=== PATIENT | female | born 1935 | race African-American/Black ===

== ENCOUNTER 2016-07-23 18:54 | Emergency (ER) | payer MEDICARE ==
--- NOTE | ~2016-07-23 | EKG ---
PATIENT: OLGA LIDIA MOYA UNIT #: [id number] Ventricular Rate: 98 BPM Atrial Rate: 98 BPM P-R Interval: 144 ms QRS Duration: 92 ms Q-T Interval: 384 ms QTC Calculation(Bezet): 490 ms P [place]: 84 degrees Calculated R [place]: 31 degrees Calculated T [place]: 48 degrees Diagnosis Line: Sinus rhythm with occasional Premature ventricular Diagnosis Line: complexes Diagnosis Line: Biatrial enlargement Diagnosis Line: Incomplete right bundle branch block Diagnosis Line: Anterior infarct , age undetermined Diagnosis Line: Abnormal ECG Diagnosis Line: When compared with ECG of 11-JAN-2016 11:11, Diagnosis Line: Significant changes have occurred Diagnosis Line: Confirmed by CALVIN PACHECO MD ([id number]) on 08/02/2016 Diagnosis Line: 11:50:50 AM INTERPRETING MD: TARA CONNOR
--- NOTE | ~2016-07-23 | CR72 ---
[facility] A Service [facility] RADIOLOGY TEXT RESULTS PATIENT: OLGA LIDIA MOYA V LOCATION: SED : 34 UNIT #: [id number] AGE: [address]: Cyndi Stevens SEX: F ORDER DR: [id number] [address] [address] [id number] MR#: [id number] Acc #: [id number] NAME: OLGA LIDIA MOYA V. : 1935 SEX: F STUDY DATE/TIME: 07/23/2016 18:59 UNIT: SED ROOM: STUDY DESCRIPTION: CR Chest Single View Portable Attending Physician: Cyndi Stevens Pa-C Ordering Physician: Cyndi Stevens Pa-C Primary Care Physician: Damir Ramos M.D. MEDICAL IMAGING REPORT This report is preliminary unless electronic signature is present. EXAM Portable chest x-ray 07/23/2016 HISTORY Cough, short of breath, aches, cough 1 week ago. TECHNIQUE AP radiograph of the chest is presented. COMPARISON STUDIES 01/10/2016. FINDINGS No acute bony abnormality. Heart upper limits of normal in size. Lungs well-inflated. Pulmonary vasculature mildly prominent as on prior examination. This may be a reflection of mild chronic or recurrent vascular congestion. No cynthia parenchymal edema. No pleural effusion pneumothorax or suspicious nodule. Healed granulomas disease, unchanged. No dense airspace disease. Dictated by... Glen Valentin M.D. THIS IS AN ELECTRONICALLY VERIFIED REPORT Glen Valentin M.D. at 07/24/2016 3:05 PM DONY/betsy TD: 07/23/2016 23:32 JOB #: [id number] [facility] A Service [facility] RADIOLOGY TEXT RESULTS PATIENT: OLGA LIDIA MOYA V LOCATION: SED : 34 UNIT #: [id number] AGE: [address]: Cyndi Stevens SEX: F ORDER DR: MEDICAL IMAGING REPORT Page 1 of 1
[~2016-07-23 18:54] MED LIST: ACETAMINOPHEN PO; ADVAIR HFA 115-12 GM IH; ALBUTEROL17 GM INH; ALLEGRA ALLERG180 MG PO; APAP325 MG PO; ASPIRIN; ASPIRIN PO; ASPIRIN81 M1 PO; ASPIRIN81 M2 PO; ATIVAN; ATIVAN PO; AVAPRO; AVAPRO PO; AVAPRO300 M1 PO; BACLOFEN10 MG PO; BACTRIM DS TABL1 TA1 PO; BACTRIM DS TABL1 TAB PO; BAYER ASPIRIN325 M1 PO; BENTYL10 M1 PO; BENTYL10 MG; BENTYL10 MG PO; BENZONATATE PO; BENZTROPINE MESY1 MG PO; CALTRATE PLUS T1 TAB PO; CARAFATE PO; CIPRO PO; CLONAZEPAM0.5 MG PO; COATED ASPIRIN325 M1 PO; COGENTIN1 MG; COL-RITE250 MG PO; COLACE; COLACE PO; COMBIVENT U/D3 M1 INH; DICYCLOMINE HCL10 MG; DICYCLOMINE HCL10 MG PO; DICYCLOMINE HCL20 MG; DICYCLOMINE HCL20 MG PO; DOCUSATE SODIU100 MG PO; EPIPEN0.3 MG/0.1 IM; FIBER THERAPY625 MG PO; FLONASE16 GM; FLOVENT DI50 MCG/DIS IH; GAS-X166 MG PO; HYDRALAZINE HCL25 MG PO; ISMO20 M2; ISORDIL PO; ISORDIL10 MG PO; ISOSORBIDE DINI10 MG PO; ISOSORBIDE MONO20 M1 PO; KEPPRA750 MG PO; KLONOPIN0.5 MG; LIPITOR20 MG PO; LOPRESSOR; MACROBID100 M1 PO; MAG-OXIDE400 MG PO; MAGNESIUM PO; METAMUCIL1 PKT PO; MIDRIN CAPSULE1 CAP; MIDRIN CAPSULE1 CAP PO; MIRALAX17 G1 PO; MIRALAX17 GM PO; MOBIC PO; MONTELUKAST SOD10 MG PO; MUCINEX DM1 TAB.SR .; MUCINEX DM1 TAB.SR . PO; NEURONTIN PO; NITROQUICK0.4 MG SL; NORCO 5/325 TAB1 TAB PO; NORCO1 TAB 10/3 PO; NORVASC PO; NORVASC10 MG; NORVASC10 MG PO; OMEPRAZOLE40 M1 PO; ONDANSETRON HCL4 MG PO; PERCOCET5/325 PO; PHENERGAN PO; PHENERGAN25 MG PO; PLAVIX; PLAVIX PO; POSTURE600 MG PO; PREDNISONE PO; PREMARIN; PREMPRO 0.3 MG/1 TAB PO; PRILOSEC; PRILOSEC PO; PROAIR HFA8.5 GM IH; PROAIR HFA8.5 GM INH; PROTONIX PO; PROVERA; PYRIDIUM PO; REGLAN10 MG PO; SALINE NASAL SPRAY; SENNA; SENNA PO; SIMVASTATIN40 MG PO; SINGULAIR PO; SPIRIVA18 MCG INH; SYNTHROID; SYNTHROID PO; SYNTHROID0.05 MG; SYNTHROID25 MCG PO; TETRACYCLINE PO; TOPROL XL; TRAMADOL HCL50 M2 PO; TYLOX 5-500 MG1 EACH PO; VIBRAMYCIN100 M1 PO; VICODIN 5/1 TAB 5/50 PO; VICODIN 5/500 T1 TAB PO; VIT B-12 PO; VITAMIN D 4001 UDTAB PO; XIFAXAN; ZOCOR; ZOFRAN PO; [UNRECOGNIZED DRUG - OTHER] PO; [UNRECOGNIZED DRUG - REMARK]
[2016-07-23 19:33] LABS: BASOPHIL# 0.1 X10e3 (0-0.3); BASOPHIL% 0.6 % (0-2.5); EOSINOPHIL% 0.2 % (0.0-7.0); HEMATOCRIT 40.2 % (35.0-45.0); LYMPHOCYTE% 8.4 % (17.0-45.0); MEAN CELL VOLUME 90.2 FL (83-96); MEAN CORPUSCULAR HEMOGLOBIN 29.1 PG (28-34); MEAN CORPUSCULAR HGB CONC 32.3 g/dL (30-36); MEAN PLATELET VOLUME 8.7 FL (6.5-11.5); MONOCYTE# 1.1 X10e3 (0-1.0); MONOCYTE% 9.5 % (3.0-12.0); NEUTROPHIL# 9.6 X10e3 (1.5-7.1); NEUTROPHIL% 81.3 % (40-75); PLATELET COUNT 193 X10e3 (140-420); RED BLOOD COUNT 4.45 X10e (3.90-5.30); RED CELL DISTRIBUTION WIDTH 15.8 % (11.0-15.5); WHITE BLOOD COUNT 11.8 X10e3 (4.0-10.5)
[2016-07-23 19:37] LABS: DIFF IND NO
[2016-07-23 19:47] LABS: ALBUMIN SERUM 4.3 g/dL (3.5-5.0); BILIRUBIN,TOTAL 0.8 mg/dL (0.2-2.0); BUN/CREATININE RATIO 13.33; CALCIUM SERUM 9.2 mg/dL (8.4-10.2); CREATININE SERUM 1.2 mg/dL (0.6-1.4); GLOM FILT RATE Estimated 48.7 mL/min (>60); PROTEIN TOTAL SERUM 8.2 g/dL (6.0-8.3)
[2016-07-23 19:49] LABS: INR 1.1; PROTHROMBIN TIME (PATIENT) 11.9 SECONDS (9.5-12.4)
[2016-07-23 19:51] LABS: POC - CKMB 1.5 ng/mL (0.0-7.9); POC - TROPONIN <0.05 ng/mL (<=0.05)
[2016-07-23 19:56] LABS: PARTIAL THROMBOPLASTIN TIME 28.1 SECONDS (25.6-38.1)
[2016-07-23 20:12] LABS: URINE SOURCE CLEAN CATCH
[2016-07-23 20:17] LABS: URINE APPEARANCE HAZY; URINE BILIRUBIN NEG (NEG); URINE BLOOD 3+ (NEG); URINE COLOR YELLOW; URINE GLUCOSE NEG (NORM); URINE KETONE NEG (NEG); URINE LEUKOCYTE ESTERASE 2+ (NEG); URINE NITRATE POS (NEG); URINE PH 5.5 (5-8); URINE PROTEIN 2+ (NEG); URINE SPECIFIC GRAVITY 1.015 (1.003-1.035); URINE UROBILINOGEN 0.2 MG/DL (NORM)
[2016-07-23 20:19] LABS: MICRO INDICATED? YES
[2016-07-23 20:20] LABS: URINE BACTERIA 2+ (NEG); URINE MUCUS PRESENT; URINE RBC 50-100 /[HPF] (0-2); URINE SQUAMOUS EPITHELIAL CELL FEW /[HPF]; URINE TRANSITIONAL EPI CELLS FEW /[HPF]; URINE WBC 50-100 /[HPF] (0-5)
== END 2016-07-23 20:50 | disposition home or self-care (01) ==
LOC: SED 18:54
PROVIDERS: Physician Assistant
DX: J44.1 Chronic obstructive pulmonary disease with (acute) exacerbation (principal); N39.0 Urinary tract infection, site not specified; I25.2 Old myocardial infarction; F17.200 Nicotine dependence, unspecified, uncomplicated; Z98.890 Other specified postprocedural states; Z88.0 Allergy status to penicillin; Z88.8 Allergy status to other drugs, medicaments and biological substances; Z88.1 Allergy status to other antibiotic agents; Z91.040 Latex allergy status
CPT/HCPCS: 36415; 71010; 80053; 81003; 82553; 84484; 85025; 85610; 85730; 93005; 94640; 96374; 99284; J2930

== ENCOUNTER → 2016-08-08 20:15 | Emergency (ER) | payer MEDICARE ==
[2016-08-08 20:08] LABS: BASOPHIL# 0.1 X10e3 (0-0.3); BASOPHIL% 0.8 % (0-2.5); EOSINOPHIL# 0.1 X10e3 (0-0.7); EOSINOPHIL% 1.7 % (0.0-7.0); HEMATOCRIT 38.6 % (35.0-45.0); HEMOGLOBIN 12.2 gm/dL (12.0-16.0); LYMPHOCYTE# 1.7 X10e3 (1.0-3.5); LYMPHOCYTE% 20.8 % (17.0-45.0); MEAN CELL VOLUME 93.5 FL (83-96); MEAN CORPUSCULAR HEMOGLOBIN 29.5 PG (28-34); MEAN CORPUSCULAR HGB CONC 31.6 g/dL (30-36); MEAN PLATELET VOLUME 9.2 FL (6.5-11.5); MONOCYTE# 0.5 X10e3 (0-1.0); MONOCYTE% 6.5 % (3.0-12.0); NEUTROPHIL# 5.7 X10e3 (1.5-7.1); NEUTROPHIL% 70.2 % (40-75); PLATELET COUNT 261 X10e3 (140-420); RED BLOOD COUNT 4.13 X10e (3.90-5.30); RED CELL DISTRIBUTION WIDTH 16.3 % (11.0-15.5); WHITE BLOOD COUNT 8.1 X10e3 (4.0-10.5)
[2016-08-08 20:09] LABS: DIFF IND NO
[~2016-08-08 20:15] MED LIST changes: +FLAGYL250 M1 PO; +ISMO20 M2 PO; +KLONOPIN0.5 MG PO; +LIPITOR40 MG PO; +LOPRESSOR PO; +SYNTHROID0.05 MG PO; +TYLENOL325 M1 PO
[2016-08-08 20:19] LABS: INR 0.9; PARTIAL THROMBOPLASTIN TIME 27.4 SECONDS (23.5-31.3); PROTHROMBIN TIME (PATIENT) 9.7 SECONDS (9.6-11.5)
[2016-08-08 20:36] LABS: ALBUMIN SERUM 4.3 g/dL (3.5-5.0); ALKALINE PHOSPHATASE 124 U/L (32-92); ALT (SGPT) 18 U/L (10-40); AST (SGOT) 24 U/L (10-42); BILIRUBIN, DIRECT <0.1 mg/dL (0.0-0.2); BILIRUBIN,INDIRECT 0.3 mg/dL (0.0-0.9); BILIRUBIN,TOTAL 0.4 mg/dL (0.2-2.0); BLOOD UREA NITROGEN 18 mg/dL (9-23); BUN/CREATININE RATIO 12.85; CARBON DIOXIDE 24 mmol/L (22-31); CHLORIDE 110 mmol/L (100-111); CREATININE SERUM 1.4 mg/dL (0.6-1.4); GLOM FILT RATE Estimated 40.5 mL/min (>60); GLUCOSE FASTING 89 mg/dL (70-110); POTASSIUM 5.3 mmol/L (3.5-5.1); PROTEIN TOTAL SERUM 7.8 g/dL (6.0-8.3); SODIUM 142 mmol/L (135-145)
== END | disposition left against medical advice (07) ==
LOC: CED 20:15
DX: Z53.21 Procedure and treatment not carried out due to patient leaving prior to being seen by health care provider (principal)
CPT/HCPCS: 80048; 80076; 85025; 85610; 85730; 86850; 86900; 86901

== ENCOUNTER 2016-08-08 21:04 | Inpatient (IN) | payer MEDICARE ==
--- NOTE | ~2016-08-08 | DS ---
Unit #: [id number] #: [id number] Patient: OLGA LIDIA MOYA V [id number] [address] [place], [place] [address] [id number] MR#: [id number] NAME: OLGA LIDIA MOYA V. ROOM: 473 Age: 81 Sex: F Admission Date: 08/08/2016 : 1935 Discharge Date: 08/10/2016 Attending Physician: Demetrio Ashby M.D. Primary Care Physician: Damir Ramos M.D. DISCHARGE SUMMARY FINAL DIAGNOSES 1. There was a question of gastrointestinal bleed with some abdominal pain; status post esophagogastroduodenoscopy by Dr. 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 2. Acute renal failure which is improved. 3. There was a question of atrial fibrillation but that has been ruled out. Cardiology consult was done. Patient has spit S2 on exam. 4. Hypertension. 5. Hyperlipidemia. 6. Chronic obstructive pulmonary disease. 7. Gastroesophageal reflux disease. 8. Anemia of chronic disease. 9. Ongoing tobacco abuse. CONSULTATIONS [facility] HOSPITALIZATION 1. Dr. Payan from cardiology services. 2. Dr. Jorge from renal services. ADMITTING PHYSICIAN Dr. Ashby. DISCHARGING PHYSICIAN Dr. Edel Plasencia. DIAGNOSTIC STUDIES LABORATORY: Workup on discharge shows sodium 138, potassium 4.6, chloride 110, BUN 12, creatinine 1.2, alkaline phosphatase 99, calcium 8.0, albumin 3.3, TSH 4.08, WBC 5.6, hemoglobin 10.4, hematocrit 33.5, platelet count of 216, lactic acid 1.3. IMAGING: Radiological study done during hospitalization was CT scan of abdomen and pelvis which showed the colon is not opacified with enteric contrast at the time of image acquisition. The imaged bowel appears nonthickened and noninflamed, multiple hepatic cysts were seen. Surgical changes in the epigastrium, similar to prior exam. Mild cardiomegaly. Large bilateral renal calculi. There is a 2 cm stone in the left renal pelvis which could serve as a source of intermittent obstruction but no hydronephrosis is seen at this time. DISCHARGE MEDICATIONS Unit #: [id number] #: [id number] Patient: OLGA LIDIA MOYA V 1. Isosorbide 20 mg b.i.d. 2. Synthroid 0.05 mg p.o. daily. 3. Prilosec 40 mg daily. 4. Lipitor 40 mg q.h.s. 5. MiraLAX 17 g p.o. b.i.d. 6. Docusate 100 mg daily. 7. Metoprolol 12.5 mg b.i.d. 8. Amlodipine 10 mg daily. 9. Tylenol 650 q.4 h. p.r.n. 10. Zofran 4 mg q.6 h. p.r.n. 11. Bentyl 10 mg p.o. t.i.d. PROCEDURE PERFORMED DURING HOSPITALIZATION EGD which was done by Dr. Luna on 08/09/16; two AVMs seen which were cauterized and large food bezoar suggests gastroparesis. HOSPITAL COURSE This is an 81-year-old female who was admitted to the hospital by my colleague Dr. Ashby with questionable GI bleed. Patient had multiple medical problems including coronary artery disease, hypertension and hyperlipidemia, COPD, GERD and hypothyroidism. Patient also continued to smoke. Patient is doing much better at this time. CT scan of the abdomen and pelvis was done which no acute diverticulitis but some patients could have clinical manifestation of diverticulitis without CT manifestation. Patient did receive IV Flagyl during hospitalization. Dr. Luna was consulted, had EGD done, findings are as above. Patient has been started on Bentyl. She is not vomiting anymore. Discussed with the patient's daughter at length and patient will be discharged home in stable condition. PHYSICAL EXAMINATION ON DISCHARGE VITAL SIGNS: Blood pressure is 128/50, respiratory rate 18, pulse is 50, temperature 97.5, oxygen saturation is 98%. HEENT: Head is normocephalic. Chest has fair air entry. CVS: S1 and S2 positive, regular rhythm. ABDOMEN: Abdomen is soft. DISCHARGE INSTRUCTIONS 1. Patient is being discharged home, with her daughter, in stable condition. 2. Medication as per med rec. 3. Follow up with primary care provider in one week. 4. CBC and BMP to be done in one week. 5. Follow up urine culture report. 6. Urology consult as outpatient for renal stones. 7. [facility] to follow the patient at home. DISCUSSION Discussed with the patient's daughter at length about plan of care; she does verbalize understanding. All questions were answered to her satisfaction. Dictated by... Edel Plasencia M.D. Unit #: [id number] #: [id number] Patient: VIRGINIA MOYAGAVIN JENSEN/jolie TD: 08/11/2016 14:30 JOB #: [id number] DISCHARGE SUMMARY Page 1 of 1 X Edel Plasencia MD X DISCHARGE SUMMARY
--- NOTE | ~2016-08-08 | HP ---
Unit #: [id number] #: [id number] Patient: OLGA LIDIA AGUSTIN V [id number] [address] [place], [place] [address] [id number] I MR#: [id number] NAME: OLGA LIDIA AGUSTIN V. ROOM: 473 Age: 81 Sex: F Admission Date: 08/08/2016 : 1935 Attending Physician: Demetrio Ashby M.D. Primary Care Physician: Damir Ramos M.D. HISTORY AND PHYSICAL ADMISSION DIAGNOSES 1. Questionable gastrointestinal bleed with some abdominal pain. 2. Acute renal failure. 3. History of coronary artery disease and myocardial infarction in the past. 4. Hypertension. 5. Dyslipidemia. 6. Anemia of chronic disease. 7. History of gastroesophageal reflux disease. 8. Hypothyroidism. 9. Continued tobacco use. 10. Questionable urinary tract infection. HISTORY OF PRESENT ILLNESS Ms. Agustin is an 81-year-old female with a past medical history of NE and coronary artery disease, along with hypertension, dyslipidemia, COPD, GERD, and hypothyroidism. She also continues smoking tobacco. She went to an [facility] ER with the complaints of abdominal discomfort and black tarry stools for the last several days. Patient's pain currently has subsided. A CT abdomen and pelvis at the [facility] showed questionable diverticulitis. Patient currently is status post evaluation per GI and underwent EGD which showed some AV malformations and is currently on PPI. Today's hemoglobin and hematocrit are stable at 10.7 and 34.1, and her abdominal pain has resolved. Otherwise, she denies any nausea, vomiting, diarrhea, active chest pain, headache, dizziness, or syncope. So a 12-point review of systems on this patient is basically negative except as above. PAST MEDICAL HISTORY As above. PAST SURGICAL HISTORY 1. Placement of InterStim device and then removal in 2016. 2. Gastric bypass. 3. Cystoscopy. HOME MEDICATIONS 1. Synthroid. 2. Omeprazole. 3. Reglan. 4. Phenergan. 5. Angel aspirin. 6. Mobic. 7. Bentyl. Unit #: [id number] #: [id number] Patient: OLGA LIDIA AGUSTIN V 8. Norvasc. 9. Colace. 10. Toprol-XL. ALLERGIES Penicillin, antihistamines, piperidine, quinolones, zinc, Benadryl, and latex. SOCIAL HISTORY Active smoker. Denies any alcohol or illicit drugs. FAMILY HISTORY Unremarkable. PHYSICAL EXAMINATION GENERAL: Patient is an 71-year-old female in no acute distress. VITAL SIGNS: Blood pressure 130/53, heart rate 56, respirations 18, and temperature 97.7. HEENT: Head is atraumatic. Pupils equal, round, and reactive to light and accommodation. Extraocular muscles intact. Oropharynx clear. NECK: Supple. No mass, no JVD, and no bruits. CHEST: Diminished at the bases but generally clear. CARDIOVASCULAR: S1 and S2. No murmurs. ABDOMEN: Soft, nontender, and nondistended. LOWER EXTREMITIES: Without any cyanosis, clubbing, or edema. NEUROLOGIC: Grossly intact with no focal deficits. DIAGNOSTIC STUDIES LABORATORY: Urinalysis significant for 2+ leukocyte esterase. BUN and creatinine 15 and 1.5. Hemoglobin and hematocrit as above, 10.7 and 34.1, and white count 6.3. IMAGING: CT of the abdomen and pelvis as above. ASSESSMENT AND PLAN 1. Questionable gastrointestinal bleed, status post EGD with arteriovenous malformations. Continue per Gastroenterology. Continue proton pump inhibitor and monitor hemoglobin and hematocrit. 2. Acute renal failure most likely prerenal. Will ask Nephrology for evaluation. Avoid nephrotoxic and nonsteroidal antiinflammatories. 3. History of coronary artery disease and myocardial infarction. Continue aspirin and beta robert. 4. Hypertension, stable. 5. Dyslipidemia. Continue home medications. 6. Anemia. Monitor hemoglobin and hematocrit. 7. History of gastroesophageal reflux disease, on proton pump inhibitor. 8. Hypothyroidism. Continue replacement. 9. Questionable urinary tract infection. Will check urine culture. 10. Questionable diverticulitis, on Flagyl for now. 11. Gastrointestinal and deep venous thrombosis prophylaxis. Continue proton pump inhibitor and sequential compression devices. 1. Dictated by Demetrio Ashby M.D. OC/am Unit #: [id number] #: [id number] Patient: OLGA LIDIA AGUSTIN V TD: 08/09/2016 18:57 JOB #: [id number] HISTORY AND PHYSICAL Page 1 of 1 X Demetrio Ashby MD HISTORY AND PHYSICAL
--- NOTE | ~2016-08-08 | OR ---
Unit #: [id number] #: [id number] Patient: OLGA LIDIA MOYA V [id number] [facility] [place] [facility]. [place], [place] [address] [id number] I MR#: [id number] NAME: OLGA LIDIA MOYA V. ROOM: 473 Date of Procedure: 08/09/2016 Admission Date: 08/08/2016 Surgeon: Arian Luna M.D. : 1935 Attending Physician: Demetrio Ashby M.D. Primary Care Physician: Damir Ramos M.D. OPERATIVE REPORT PROCEDURES PERFORMED Esophagogastroduodenoscopy with argon plasma coagulation. INDICATIONS FOR PROCEDURE The patient presented with black stools and drop in hemoglobin, undergoing upper endoscopy for evaluation. MEDICATIONS Monitored anesthesia. POSTOPERATIVE FINDINGS 1. The patient has had previous antrectomy. 2. Two AVMs seen in the stomach were cauterized using APC. 3. Large food bezoar suggest gastroparesis postoperative. 4. Normal esophagus. PLAN Continue watch H and H and PPIs for now. DESCRIPTION OF PROCEDURE The patient was explained of the procedure, risks, and benefits along with risks and benefits of anesthesia. She was brought to the endoscopy room. Propofol anesthesia was given. Bite block was placed. The scope was passed down the mouth into the esophagus, stomach, duodenum, and distal duodenum. Findings as described. APC carried out. Gently, the scope was pulled out. She tolerated it well. Dictated by... Festus Black/tanvi TD: 08/09/2016 22:28 JOB #: [id number] Unit #: [id number] #: [id number] Patient: OLGA LIDIA MOYA V OPERATIVE REPORT Page 1 of 1 X Arian Luna MD PROCEDURE OPERATIVE NOTE
--- NOTE | ~2016-08-08 | CO ---
Unit #: [id number] #: [id number] Patient: OLGA LIDIA MOYA V [id number] [facility]. [place], [place] [address] [id number] I MR#: [id number] NAME: OLGA LIDIA MOYA V. ROOM: 473 Age: 81 Sex: F Admission Date: 08/08/2016 : 1935 Attending Physician: Demetrio Ashby M.D. Primary Care Physician: Damir Ramos M.D. Consultation Date: 08/10/2016 CONSULTATION REPORT REASON FOR CONSULT Possible atrial fibrillation. HISTORY OF PRESENT ILLNESS This is a pleasant 81-year-old female, who is typically followed in the office by Dr. Henry. She has a past medical history of coronary artery disease with history of [place] x2. She also has a history of angioplasty and stenting of the right coronary artery and circumflex coronary artery in the past with her last cardiac angiogram in 2006. In 2006, on her cardiac catheterization, she was found to have a previously placed stent to the right coronary artery with 100% stenosis. There was an 80% stenosis just proximal to the stent. The right ventricular branch was called in-stent shelter. At that time, she was continued on medical management. She also has a history of hypertension, hyperlipidemia, COPD, GERD, hypothyroidism, and continued tobacco abuse. The patient underwent Lexiscan Cardiolite in 2013, which showed no stress-induced ischemia and LVEF of 55%. She had a 2D echocardiogram in 2013, which showed an LVEF of 55% with mild mitral regurgitation. The patient was admitted on 08/08/2016 from an outlying facility. She initially presented to [facility] with complaints of abdominal pain, nausea, and black tarry stools times approximately 1 week. The patient was transferred here for further evaluation. GI was consulted, and she underwent upper endoscopy per Dr. Luna on 08/09/2016, two AVMs were found in the stomach and were cauterized with APC. She also was found to have a large food bezoar suggestive of gastroparesis. Her hemoglobin is currently stable at 10.4, and she has not required any transfusions of blood. We were asked to see secondary to possible atrial fibrillation. However, EKG was reviewed, which showed a sinus bradycardia. Telemetry was reviewed and shows no evidence of atrial fibrillation. The patient denies any complaints at present of chest pain or shortness of breath. She is currently resting in bed and appears comfortable. PAST MEDICAL HISTORY 1. Known coronary artery disease with history of [place], status post angioplasty and stent placement to the right coronary artery and circumflex artery. 2. Cardiac catheterization on 05/06/2006 shows left main normal; circumflex artery proximal 50% to 60%; right coronary artery, dominant vessel, which shows presence of an intracoronary stent, mid segment with 80% stenosis just proximal to the stent. There is also 100% in-stent stenosis. Proximal half of the stent shows origin of another right Unit #: [id number] #: [id number] Patient: MOYA,OLGA LIDIA V ventricular branch, which is small in caliber, called in-stent shelter. Distal right coronary artery PDA and left ventricular branch with no filling by ipsilateral, contralateral, collaterals. EF of 50% with trace MR. 3. Lexiscan Cardiolite in 04/2013 shows no ischemia or infarct, ejection fraction of 55%. 4. Hypertension. 5. Hyperlipidemia. 6. GERD. 7. Hiatal hernia. 8. Renal stones. 9. COPD. 10. Continued tobacco abuse. PAST SURGICAL HISTORY 1. Gastric bypass. 2. InterStim placement with subsequent removal. 3. Cystoscopy. 4. Angioplasty and stent placement. SOCIAL HISTORY The patient lives with her son. She continues to smoke about half a pack daily for the last 50 years. She has family available for assistance. She denies illicit drugs or alcohol use. FAMILY HISTORY Noncontributory secondary to her advanced age. ALLERGIES Penicillin, ciprofloxacin, quinolones, Benadryl, latex, antihistamines. HOME MEDICATIONS Synthroid 50 mcg p.o. daily; omeprazole 40 mg p.o. daily; Reglan 10 mg p.o. q.6 hours; Phenergan 12.5 mg p.o. q.6 hours p.r.n., same with the Reglan p.r.n.; aspirin 325 mg p.o. daily; Mobic 7.5 mg p.o. daily p.r.n.; Bentyl 10 mg p.o. t.i.d. p.r.n.; Norvasc 10 mg p.o. daily; Colace; Toprol-XL 12.5 mg p.o. b.i.d.; atorvastatin 40 mg p.o. q.h.s.; isosorbide mononitrate 20 mg p.o. t.i.d. REVIEW OF SYSTEMS CONSTITUTIONAL: Negative for fever or chills. Denies weakness or fatigue. Denies weight loss or weight gain. HEENT: Denies headache, dizziness, or difficulty with swallowing. CARDIOVASCULAR: intermittent complaints of chest pain, none at present. Denies palpitations. Denies PND or orthopnea. Denies syncope or near syncope. RESPIRATORY: Intermittent dyspnea, none currently present. Denies cough or hemoptysis. GASTROINTESTINAL: Positive for nausea, intermittent vomiting. Positive for constipation. Positive for black tarry stools. EXTREMITIES: Denies claudication. Denies lower extremity swelling. PHYSICAL EXAMINATION VITAL SIGNS: Temperature 98.4, respiratory rate 18, pulse is 50s to 60s, blood pressure 126/58, BMI is 21. GENERAL: This is a frail 81-year-old female, who is in no acute distress. Her daughter is currently at bedside. NECK: Trachea is midline. No thyromegaly or lymphadenopathy. No jugular Unit #: [id number] #: [id number] Patient: MOYA,OLGA LIDIA V vein distention. No carotid bruits. HEART: S1 and split S2 are auscultated. No murmur, gallop, or rub. Regular rate and rhythm. LUNGS: Clear to auscultation anteriorly, diminished in the bases. No rales, rhonchi, or wheezes. ABDOMEN: Soft. Bowel sounds are present. No hepatomegaly. No masses. EXTREMITIES: Pulses are weak. No clubbing, cyanosis, or edema. SKIN: Warm and dry. NEUROLOGIC: She is awake, alert, and oriented. She moves all extremities equally. She follows commands with ease. DIAGNOSTIC STUDIES LABORATORY RESULTS: Sodium 138, potassium 4.6, chloride 110, CO2 of 26, BUN 12, creatinine 1.2, glucose 97. Hemoglobin 10.4, hematocrit 33.5, WBCs 5.6, platelet count 216. TSH is 4.08. IMAGING STUDIES: CT of the abdomen and pelvis shows diverticular changes present within the descending and sigmoid colon without CT evidence of acute diverticulitis, multiple hepatic cysts, presumed surgical changes of the left hepatic lobe. Mild cardiomegaly. Large bilateral renal calculi. There is a 2 cm stone in the left renal pelvis, but no hydronephrosis. CARDIOVASCULAR: EKG shows sinus bradycardia, rate of 50 beats per minute, right atrial enlargement, incomplete right bundle-branch block, Q waves are present in anterior leads, no acute ischemic changes noted, QTc interval is 470 msec. IMPRESSION 1. Abdominal pain, vomiting, and tarry stools. The patient is status post esophagogastroduodenoscopy with cauterization of two arteriovenous malformations per GI Service, Dr. Luna. 2. Acute renal failure. Followed by Nephrology. 3. History of coronary artery disease and myocardial infarction in the past with stent placements, treated with medical management. 4. Hypertension. 5. Dyslipidemia. 6. Anemia. 7. History of gastroesophageal reflux disease. 8. Hypothyroidism. 9. Sinus bradycardia. PLAN At this time, there is no evidence of atrial fibrillation. The patient does have a split S2 on exam. There are no symptoms of congestive heart failure or unstable angina. The patient will be continued on the same dose of her metoprolol. We will resume her statin therapy and aspirin if okay with the GI Service. She will also be resumed on her isosorbide mononitrate 20 mg p.o. t.i.d. per her home dosing regimen. We will check fasting lipid panel in the a.m. At this time, there is no further cardiac workup needed. This has been discussed with the patient and the family, and they are agreeable to the plan. Thank you for asking us to see this pleasant patient. We appreciate the consult. Unit #: [id number] #: [id number] Patient: OLGA LIDIA MOYA V Dictated by... Shante Arias A.P.R.N. LMW/modl TD: 08/11/2016 06:56 JOB #: [id number] CONSULTATION REPORT Page 1 of 1 X Shante Arias APRN X CONSULTATION REPORT
--- NOTE | ~2016-08-08 | CT4 ---
[facility] A Service [facility] RADIOLOGY TEXT RESULTS PATIENT: OLGA LIDIA MOYA V LOCATION: C4 473-01 : 34 UNIT #: [id number] AGE: [address]: Demetrio Ashby MD SEX: F ORDER DR: [id number] [address] [address] [id number] MR#: [id number] #: [id number] NAME: OLGA LIDIA MOYA : 1935 SEX: F STUDY DATE/TIME: 08/08/2016 23:17 UNIT: SED ROOM: STUDY DESCRIPTION: CT Abd and Pelv Wo Cont Attending Physician: Darci Pham M.D. Ordering Physician: Darci Pham M.D. Primary Care Physician: Damir Ramos M.D. MEDICAL IMAGING REPORT This report is preliminary unless electronic signature is present. EXAM CT abdomen and pelvis without contrast DATE 08/08/2016 HISTORY 81-year-old female abdominal pain, black stool and vomiting for [address] abdomen and pelvis without contrast 01/10/2016. PROCEDURE 5 mm axial images from the lung bases through the lesser trochanters without intravenous contrast. Enteric contrast only was administered. Sagittal and coronal reformatted images were obtained. This CT exam was performed with one or more of the following radiation dose reduction techniques: Automatic exposure control, adjustment of mA and/or kV according to patient size, and iterative reconstruction. FINDINGS ABDOMEN FINDINGS: The colon is not opacified with contrast at the time of image acquisition. Imaged small bowel loops appear nonthickened and noninflamed, with mild generalized gaseous distension of large and small bowel loops. Many of the images are degraded by patient motion. No abnormal large or small bowel inflammatory changes are identified. Advanced diverticular changes are thought to be present in the descending and sigmoid colon without evidence of acute diverticulitis on this examination. [facility] A Service [facility] RADIOLOGY TEXT RESULTS PATIENT: OLGA LIDIA MOYA V LOCATION: C4C 473-01 : 34 UNIT #: [id number] AGE: [address]: Demetrio Ashby MD SEX: F ORDER DR: Mild emphysematous changes are present in the lung bases. There is mild cardiomegaly. Presumed coronary artery calcification versus stent. Numerous surgical changes are present in the upper abdomen predominantly surrounding the stomach and small bowel loops. Presumed surgical changes of the lateral left hepatic segment. Lobulated multicystic changes seen within the lateral left hepatic segment measuring up to 2.3 x 1.8 cm and appears unchanged from 01/10/2016. Low-density lesions scattered elsewhere within the liver are favored to represent benign cysts and are stable. One of the largest of these cysts is seen in the hepatic dome measuring nearly 2.3 cm. Numerous bilateral renal calculi are present, one of the largest in the right upper renal pole measuring nearly 1.5 cm. There is a stone within the left renal pelvis measuring nearly 2.0 x 1.3 cm which could serve as a nidus for intermittent obstruction, although no hydronephrosis is seen at this time. Another dominant stone in the left lower renal pole measures nearly 9 mm. There is moderately advanced calcific atherosclerosis of the abdominal aorta and common iliac arteries, but no aneurysm is seen. The gallbladder, spleen, pancreas, and adrenal glands appear unremarkable. PELVIS FINDINGS: Urinary bladder, uterus and rectum are normal. No pelvic adenopathy or free fluid is identified. There are degenerative changes of both hips and of the lumbar spine. Presumed bone island in the right iliac wing. Lumbar dextroscoliotic curvature. No acute osseous abnormalities are identified. IMPRESSION 1. Limited evaluation due to lack of IV contrast and due to motion degradation. 2. The colon is not opacified with enteric contrast at the time of image acquisition. The imaged bowel appears nonthickened and noninflamed. Diverticular changes are present within the descending and sigmoid colon, without CT evidence of acute diverticulitis. Of note, some patients may have clinical manifestations of diverticulitis without CT manifestations thereof. Clinically correlate. 3. Multiple hepatic cysts. Presumed surgical changes of the left hepatic lobe. 4. Surgical changes in the epigastrium, similar to prior exam. 5. Mild cardiomegaly. 6. Large bilateral renal calculi. There is a 2 cm stone in the left renal pelvis, which could serve as a source of intermittent obstruction, but no hydronephrosis is seen at this time. Dictated by... Asha Mckay M.D. [facility] A Service of [facility] RADIOLOGY TEXT RESULTS PATIENT: OLGA LIDIA MOYA V LOCATION: [facility] 473-01 : 34 UNIT #: [id number] AGE: [address]: Demetrio Ashby MD SEX: F ORDER DR: THIS IS AN ELECTRONICALLY VERIFIED REPORT Asha Mckay M.D. at 08/09/2016 10:02 PM [facility]/fernando TD: 08/09/2016 02:02 JOB #: [id number] MEDICAL IMAGING REPORT Page 1 of 1
--- NOTE | ~2016-08-08 | EKG ---
PATIENT: OLGA LIDIA MOYA UNIT #: [id number] Ventricular Rate: 50 BPM Atrial Rate: 50 BPM P-R Interval: 160 ms QRS Duration: 98 ms Q-T Interval: 516 ms QTC Calculation(Bezet): 470 ms P [place]: 67 degrees Calculated R [place]: 48 degrees Calculated T [place]: 5 degrees Diagnosis Line: Sinus bradycardia Diagnosis Line: Right atrial enlargement Diagnosis Line: Incomplete right bundle branch block Diagnosis Line: Anterior infarct (cited on or before 10-JAN-2016) Diagnosis Line: Abnormal ECG Diagnosis Line: When compared with ECG of 23-JUL-2016 19:01, Diagnosis Line: Significant changes have occurred Diagnosis Line: Confirmed by NATHALY FERNÁNDEZ MD ([id number]) on 08/12/2016 Diagnosis Line: 8:31:01 PM INTERPRETING MD: PRADEEP CONNOR
--- NOTE | ~2016-08-08 | CO ---
Unit #: [id number] #: [id number] Patient: NYLA MOYA V [id number] [address] [place], [place] [address] [id number] MR#: [id number] NAME: NYLA MOYA V. ROOM: [facility] Age: 81 Sex: F Admission Date: 08/08/2016 : 1935 Attending Physician: Demetrio Ashby M.D. Primary Care Physician: Damir Ramos M.D. Consultation Date: 08/09/2016 CONSULTATION REPORT REASON FOR CONSULT Renal insufficiency. Thank you very much for having me see this patient in consultation. HISTORY OF PRESENT ILLNESS Ms. Nyla Moya is an 81-year-old -[place] female, who has a history of bilateral nephrolithiasis and urinary incontinence, seen by Dr. Smith in the past, who presented to the hospital with nausea and melanotic stools with possible GI bleed. The patient was found to have a creatinine of 1.4 upon admission, improved to 1.3 and up to 1.5 today with potassium of 5.1. Because of this, I was asked to see the patient. The patient was noted in July of this year to have a creatinine of 1.2 and, in January of 2016, a creatinine of 1.0. She also is noted to appear to be taking Mobic at home. The best I can tell from looking at her medication list, although she is not really sure which drug that is. She currently denies any chest pain, shortness of breath, nausea or vomiting. PAST MEDICAL HISTORY History of nephrolithiasis, history of urinary retention, history of atherosclerotic coronary artery disease, history of hypertension, history of hypothyroidism, history of hyperlipidemia, history of gastroesophageal reflux disease, history of COPD, history of diverticulosis. She is also status post gastric bypass in the past. SOCIAL HISTORY Positive smoker. No alcohol. FAMILY HISTORY Noncontributory. ALLERGIES Multiple drug allergies, which I reviewed. MEDICATIONS Her medicines here include: 1. Protonix b.i.d. 2. Amlodipine 10 mg a day. 3. Pepcid 20 mg a day. 4. Toprol XL daily. 5. Flagyl daily. 6. Synthroid daily. 7. Phenergan p.r.n. 8. Again, questionable Mobic at home. Unit #: [id number] #: [id number] Patient: NYLA MOYA V REVIEW OF SYSTEMS She denies any fevers, chills, visual problems, sinus problems, cough, hemoptysis, sore throat, difficulty swallowing. No neck pain, neck stiffness. No chest pain, chest heaviness or palpitations. She denies any shortness of breath. She has some intermittent nausea and, again, she has had the dark stools. She denies any urinary symptoms, starting, stopping or burning. She denies any lower extremity swelling. No recent seizures or strokes. PHYSICAL EXAMINATION VITAL SIGNS: T-max 99.5. Pulse 56 to 67. Blood pressure 130 to 167/50 to 70. HEENT: She is normocephalic, atraumatic. Pupils are equal, round and reactive to light. Extraocular muscles are intact. Hearing appears to be normal. Mouth is clear. No erythema. No exudate. NECK: Supple. No JVD. CARDIAC: She has a regular rate and rhythm without a rub. No S3, S4. LUNGS: Clear bilaterally. No wheezes, rhonchi or rales. ABDOMEN: Bowel sounds positive. Nontender. Soft. No mass or hepatomegaly noted. EXTREMITIES: She has no edema, clubbing or cyanosis. DIAGNOSTIC STUDIES LABORATORY: Her UA shows a specific gravity of 1.01, no protein, 25 to 50 RBCs, 50 to 10 WBCs. Hemoglobin is down to 10.7 from 12.3. Her sodium is 137, potassium 5.1, chloride 103, bicarb 25, BUN and creatinine 15 and 1.5, glucose 96, calcium 8.3, albumin 4.2. IMAGING: She had a CT scan of the abdomen and pelvis on 08/08/16 without contrast that showed hepatic cysts, cardiomegaly and a large bilateral renal stone without obstruction. ASSESSMENT AND PLAN 1. Acute on possible chronic kidney disease stage 3. Patient with increased BUN and creatinine upon presentation here. Certainly, she could have some evidence of volume depletion from maybe possible GI bleeding versus other. She has also been on Mobic. I am not sure if that has played a role as well. Her urine has 25 to 50 RBCs and no protein and a few WBCs as well. We will await for urine culture returns. Due to her hematuria and renal insufficiency, we will go ahead and do serology studies to rule out other causes of glomerulonephritis. Certainly, termination clerk, recommend staying off her Mobic and avoiding nonsteroidals as well. We will check labs in the a.m. and we will continue to follow. 2. Possible UTI. Await urine culture results. 3. Nephrolithiasis/urinary retention. We will check a bladder scan with post void residual. Certainly, her CT scan did not show any obstruction. Dictated by.Festus Sorto/luna TD: 08/15/2016 11:14 Unit #: [id number] #: [id number] Patient: NYLA MOYA V JOB #: [id number] CONSULTATION REPORT Page 1 of 1 X Dixie Jorge MD X CONSULTATION REPORT
[~2016-08-08 21:04] MED LIST changes: -FLAGYL250 M1 PO; -ISMO20 M2 PO; -KLONOPIN0.5 MG PO; -LIPITOR40 MG PO; -LOPRESSOR PO; -SYNTHROID0.05 MG PO; -TYLENOL325 M1 PO
[2016-08-08 22:06] LABS: BASOPHIL# 0.1 X10e3 (0-0.3); EOSINOPHIL# 0.1 X10e3 (0-0.7); EOSINOPHIL% 1.5 % (0.0-7.0); HEMATOCRIT 38.5 % (35.0-45.0); HEMOGLOBIN 11.9 gm/dL (12.0-16.0); LYMPHOCYTE# 1.5 X10e3 (1.0-3.5); LYMPHOCYTE% 21.9 % (17.0-45.0); MEAN CELL VOLUME 93.1 FL (83-96); MEAN CORPUSCULAR HEMOGLOBIN 28.8 PG (28-34); MEAN CORPUSCULAR HGB CONC 30.9 g/dL (30-36); MONOCYTE# 0.5 X10e3 (0-1.0); MONOCYTE% 7.4 % (3.0-12.0); NEUTROPHIL# 4.8 X10e3 (1.5-7.1); NEUTROPHIL% 68.2 % (40-75); PLATELET COUNT 262 X10e3 (140-420); RED BLOOD COUNT 4.14 X10e (3.90-5.30); RED CELL DISTRIBUTION WIDTH 16.9 % (11.0-15.5)
[2016-08-08 22:07] LABS: DIFF IND NO
[2016-08-08 22:25] LABS: ALBUMIN SERUM 4.2 g/dL (3.5-5.0); BILIRUBIN, DIRECT 0.2 mg/dL (0.0-0.2); BILIRUBIN,INDIRECT 0.4 mg/dL (0.0-0.9); BILIRUBIN,TOTAL 0.6 mg/dL (0.2-2.0); BUN/CREATININE RATIO 13.84; CALCIUM SERUM 8.9 mg/dL (8.4-10.2); CREATININE SERUM 1.3 mg/dL (0.6-1.4); GLOM FILT RATE Estimated 44.2 mL/min (>60); PROTEIN TOTAL SERUM 7.8 g/dL (6.0-8.3)
[2016-08-08 22:26] LABS: POTASSIUM 5.7 mmol/L (3.5-5.1)
[2016-08-08 23:38] LABS: URINE SOURCE CLEAN CATCH
[2016-08-08 23:40] LABS: URINE APPEARANCE CLEAR; URINE BILIRUBIN NEG (NEG); URINE BLOOD 3+ (NEG); URINE COLOR YELLOW; URINE GLUCOSE NEG (NORM); URINE KETONE NEG (NEG); URINE LEUKOCYTE ESTERASE 2+ (NEG); URINE NITRATE NEG (NEG); URINE PROTEIN NEG (NEG); URINE UROBILINOGEN 0.2 MG/DL (NORM)
[2016-08-08 23:42] LABS: MICRO INDICATED? YES; URINE RBC 25-50 /[HPF] (0-2)
[2016-08-08 23:43] LABS: CULTURE INDICATED? NO; URINE BACTERIA NEG (NEG); URINE SQUAMOUS EPITHELIAL CELL FEW /[HPF]; URINE TRANSITIONAL EPI CELLS FEW /[HPF]
[2016-08-09 03:51] LABS: BUN/CREATININE RATIO 10.71; CALCIUM SERUM 8.7 mg/dL (8.4-10.2); CREATININE SERUM 1.4 mg/dL (0.6-1.4); GLOM FILT RATE Estimated 40.5 mL/min (>60); POTASSIUM 5.3 mmol/L (3.5-5.1)
[2016-08-09 08:14] LABS: BASOPHIL% 0.8 % (0-2.5); EOSINOPHIL# 0.1 X10e3 (0-0.7); EOSINOPHIL% 1.7 % (0.0-7.0); HEMATOCRIT 34.1 % (35.0-45.0); HEMOGLOBIN 10.7 gm/dL (12.0-16.0); LYMPHOCYTE% 16.2 % (17.0-45.0); MEAN CELL VOLUME 93.2 FL (83-96); MEAN CORPUSCULAR HEMOGLOBIN 29.1 PG (28-34); MEAN CORPUSCULAR HGB CONC 31.2 g/dL (30-36); MEAN PLATELET VOLUME 9.6 FL (6.5-11.5); MONOCYTE# 0.5 X10e3 (0-1.0); MONOCYTE% 8.7 % (3.0-12.0); NEUTROPHIL# 4.6 X10e3 (1.5-7.1); NEUTROPHIL% 72.6 % (40-75); PLATELET COUNT 224 X10e3 (140-420); RED BLOOD COUNT 3.66 X10e (3.90-5.30); RED CELL DISTRIBUTION WIDTH 16.2 % (11.0-15.5); WHITE BLOOD COUNT 6.3 X10e3 (4.0-10.5)
[2016-08-09 08:17] LABS: DIFF IND NO
[2016-08-09 08:58] LABS: CALCIUM SERUM 8.3 mg/dL (8.4-10.2); CREATININE SERUM 1.5 mg/dL (0.6-1.4); GLOM FILT RATE Estimated 37.2 mL/min (>60); POTASSIUM 5.1 mmol/L (3.5-5.1)
[2016-08-10 03:25] LABS: HEMATOCRIT 33.5 % (35.0-45.0); HEMOGLOBIN 10.4 gm/dL (12.0-16.0); MEAN CELL VOLUME 92.2 FL (83-96); MEAN CORPUSCULAR HEMOGLOBIN 28.8 PG (28-34); MEAN CORPUSCULAR HGB CONC 31.2 g/dL (30-36); MEAN PLATELET VOLUME 8.7 FL (6.5-11.5); RED BLOOD COUNT 3.63 X10e (3.90-5.30); RED CELL DISTRIBUTION WIDTH 16.1 % (11.0-15.5); WHITE BLOOD COUNT 5.6 X10e3 (4.0-10.5)
[2016-08-10 03:55] LABS: ALBUMIN SERUM 3.3 g/dL (3.5-5.0); CREATININE SERUM 1.2 mg/dL (0.6-1.4); GLOM FILT RATE Estimated 48.7 mL/min (>60); POTASSIUM 4.6 mmol/L (3.5-5.1); PROTEIN TOTAL SERUM 6.1 g/dL (6.0-8.3)
[2016-08-10 03:56] LABS: BILIRUBIN,TOTAL 0.1 mg/dL (0.2-2.0)
[2016-08-10 08:43] LABS: URINE APPEARANCE CLEAR; URINE BILIRUBIN NEG (NEG); URINE BLOOD NEG (NEG); URINE COLOR YELLOW; URINE GLUCOSE NEG (NEG); URINE KETONE NEG (NEG); URINE LEUKOCYTE ESTERASE 1+ (NEG); URINE NITRATE NEG (NEG); URINE PROTEIN NEG (NEG); URINE SPECIFIC GRAVITY 1.006 (1.003-1.035); URINE UROBILINOGEN 0.2 MG/DL (NEG)
[2016-08-10 08:47] LABS: CULTURE INDICATED? NO; U HYALINE CASTS AUWI 0-2 /[LPF]; URBCS1 AUWI 0-2 /[HPF] (0-2); URINE BACTERIA AUWI NEG (NEGATIVE); URINE SQUAMOUS EPITHELIAL CELL NONE SEEN /[HPF]
[2016-08-10] MEDS ORDERED: MIRALAX17 GM PO (16:49)
[2016-08-10] MEDS ORDERED: LIPITOR40 MG PO (16:49)
[2016-08-10] MEDS ORDERED: LOPRESSOR PO (16:50)
[2016-08-10] MEDS ORDERED: PRILOSEC PO (16:50)
[2016-08-10] MEDS ORDERED: NORVASC10 MG PO (16:51)
[2016-08-10] MEDS ORDERED: SYNTHROID0.05 MG PO (16:51)
[2016-08-10] MEDS ORDERED: ISMO20 M2 PO (16:51)
[2016-08-10] MEDS ORDERED: KLONOPIN0.5 MG PO (17:15)
[2016-08-10] MEDS ORDERED: TYLENOL325 M1 PO (18:12)
[2016-08-10] MEDS ORDERED: DICYCLOMINE HCL10 MG PO (18:13)
[2016-08-10] MEDS ORDERED: FLAGYL250 M1 PO (18:15)
[2016-08-10] MEDS ORDERED: ZOFRAN PO (18:16)
[2016-08-14 15:12] LABS: ANA SCREEN Negative (Negative); MYELOPEROXIDASE AB (PNL) <1.0 AI (<1.0); PROTEINASE-3 AB (PNL) <1.0 AI (<1.0)
== END 2016-08-10 19:20 | disposition home health service (06) | DRG 378 ==
LOC: SED 21:04 → CEDOF 23:06 → C4C 08-09 03:05
PROVIDERS: Emergency Medicine; Hospitalist; Internal Medicine; Internal Medicine Nephrology
PROC: 0D568ZZ Destruction of Stomach, Via Natural or Artificial Opening Endoscopic (ICD-10-PCS; principal; 2016-08-09 10:36)
DX: K31.811 Angiodysplasia of stomach and duodenum with bleeding (principal); N17.9 Acute kidney failure, unspecified; J44.9 Chronic obstructive pulmonary disease, unspecified; K31.84 Gastroparesis; D63.8 Anemia in other chronic diseases classified elsewhere; E03.9 Hypothyroidism, unspecified; I25.10 Atherosclerotic heart disease of native coronary artery without angina pectoris; Z95.5 Presence of coronary angioplasty implant and graft; F17.210 Nicotine dependence, cigarettes, uncomplicated; I25.2 Old myocardial infarction; I10 Essential (primary) hypertension; E78.5 Hyperlipidemia, unspecified; Z88.0 Allergy status to penicillin; Z88.8 Allergy status to other drugs, medicaments and biological substances; Z88.1 Allergy status to other antibiotic agents; Z91.040 Latex allergy status; K21.9 Gastro-esophageal reflux disease without esophagitis
CPT/HCPCS: 36415; 74176; 80048; 80053; 80076; 81003; 82150; 82270; 83520; 83605; 83690; 84300; 84443; 85025; 85027; 86021; 86038; 86039; 86334; 89190; 93005; 99285; C9113; J1170; J2270; J2405